=== PATIENT | male | born 1950 | race Caucasian/White ===

== ENCOUNTER 2021-06-17 16:23 | Inpatient (IN) | payer MEDICARE, BC ==
[~2021-06-17] VITALS: Ht 185.4 cm; Wt 156.4 kg
[2021-06-17 17:45] LABS: BASOPHILS % (AUTO) 1 % (0-1); EOSINOPHILS % (AUTO) 4 % (1-7); LYMPHOCYTES % (AUTO) 17 % (22-44); MEAN CORPUSCULAR HEMOGLOBIN 29.9 pg (27.5-34.5); MEAN CORPUSCULAR HGB CONC 33.2 g/dL (33.2-36.2); MEAN PLATELET VOLUME 8.4 fL (7.4-10.4); MONOCYTES % (AUTO) 9 % (2-9); NEUTROPHILS % (AUTO) 69 % (42-75); PLATELET COUNT 238 x10^3/uL (130-400); RED BLOOD COUNT 4.32 x10^6/uL (4.38-5.82)
[2021-06-17 17:52] LABS: ALANINE AMINOTRANSFERASE 22 U/L (12-78); ANION GAP 4 mmol/L (5-15); CALCIUM 11.4 mg/dL (8.5-10.1); CHLORIDE 113 mmol/L (98-107)
[2021-06-17 17:57] LABS: ALKALINE PHOSPHATASE 146 U/L (45-117); BILIRUBIN,TOTAL 0.3 mg/dL (0.2-1.0); CREATININE 1.57 mg/dL (0.7-1.3); TOTAL PROTEIN 7.2 g/dL (6.4-8.2)
[2021-06-17] MEDS ORDERED: SODIUM CHLORIDE FLUSH 10ML SYR IVF ONE (18:30)
[2021-06-17] MEDS ORDERED: VANCOMYCIN PER PHARMACY MC ONE (18:30)
[2021-06-17] MEDS ORDERED: PIPERACILLIN/TAZO 4.5 GM in SODIUM CHLORIDE 0.9% 100 ML IVPB ONE (18:30)
[2021-06-17] MEDS ORDERED: VANCOMYCIN 2,500 MG in SODIUM CHLORIDE 0.9% 500 ML IV ONE (19:30)
[2021-06-17] MEDS ORDERED: SODIUM CHLORIDE FLUSH 10ML SYR IVF PRN (19:30)
--- NOTE | 2021-06-17 20:27 | NUR ---
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 Addendum: 06/17/21 at 2112 by DG Admit orders changed to med/tele. Nursing hand-off report given to JUDD Etienne RN; questions answered
[2021-06-17 20:30] LABS: MICROSCOPIC AUTO
[2021-06-17] MEDS ORDERED: POLYETHYLENE GLYCOL 17 GM PACKET PO PRN (20:30)
[2021-06-17] MEDS ORDERED: hydrALAzine 20 MG/ML, 1ML IVPush PRN (20:30)
[2021-06-17] MEDS ORDERED: ACETAMINOPHEN 325 MG TABLET PO PRN (20:30)
[2021-06-17] MEDS ORDERED: ONDANSETRON 2MG/ML, 2ML IVPush PRN (20:30)
[2021-06-17] MEDS ORDERED: BISACODYL 10 MG SUPP PR PRN (20:30)
[2021-06-18 00:45] VITALS: BP 168/81
[2021-06-18] MEDS ORDERED: FUROSEMIDE 20 MG/2 ML ONE ×3 (00:52→17:20)
[2021-06-18] MEDS ORDERED: HEPARIN 5,000 UNITS/ML, 1ML ONE ×3 (00:52→17:20)
[2021-06-18] MEDS: HEPARIN 5,000 UNITS/ML, 1ML SQ SCH ×3 (00:56→17:51)
[2021-06-18] MEDS: FUROSEMIDE 20 MG/2 ML IV SCH ×3 (00:56→17:51)
[2021-06-18] MEDS: AMPICILLIN/SULBACTAM 3 GM in SODIUM CHLORIDE 0.9% 100 ML IV SCH ×4 (03:21→21:48)
[2021-06-18 05:12] LABS: BASOPHILS % (AUTO) 1 % (0-1); EOSINOPHILS % (AUTO) 4 % (1-7); LYMPHOCYTES % (AUTO) 22 % (22-44); MEAN CORPUSCULAR HEMOGLOBIN 29.5 pg (27.5-34.5); MEAN CORPUSCULAR HGB CONC 32.9 g/dL (33.2-36.2); MEAN PLATELET VOLUME 8.1 fL (7.4-10.4); MONOCYTES % (AUTO) 9 % (2-9); NEUTROPHILS % (AUTO) 65 % (42-75); PLATELET COUNT 214 x10^3/uL (130-400); RED BLOOD COUNT 4.27 x10^6/uL (4.38-5.82)
[2021-06-18 05:24] LABS: ANION GAP 3 mmol/L (5-15); CHLORIDE 113 mmol/L (98-107)
[2021-06-18] MEDS ORDERED: ACETAMINOPHEN 325 MG TABLET PO PRN (07:30)
[2021-06-18] MEDS ORDERED: MAGNESIUM SULFATE PMX 4GM/100M 100 ML IV ONE (07:30)
[2021-06-18] MEDS ORDERED: CARVEDILOL 6.25 MG TABLET PO SCH (07:30)
[2021-06-18 08:00] VITALS: BP 131/59
--- NOTE | 2021-06-18 08:42 | NUR ---
TASK RN NOTE: AM MEDS REQUESTED FROM PHARMACY.
[2021-06-18] MEDS ORDERED: SENNA/DOCUSATE TABLET ONE (08:48)
[2021-06-18] MEDS: SENNA/DOCUSATE TABLET PO SCH (09:00)
[2021-06-18 12:31] VITALS: BP 145/73
[2021-06-18] MEDS: CARVEDILOL 3.125 MG TABLET PO SCH (17:52)
[2021-06-18 18:32] VITALS: BP 132/59
[2021-06-18 20:29] VITALS: BP 146/85
[2021-06-19 00:32] VITALS: BP 156/76
[2021-06-19] MEDS: HEPARIN 5,000 UNITS/ML, 1ML SQ SCH ×3 (04:00→21:17)
[2021-06-19] MEDS: AMPICILLIN/SULBACTAM 3 GM in SODIUM CHLORIDE 0.9% 100 ML IV SCH ×4 (04:01→21:17)
[2021-06-19] MEDS: CARVEDILOL 3.125 MG TABLET PO SCH ×2 (05:41→18:32)
[2021-06-19 06:36] LABS: ANION GAP 5 mmol/L (5-15); CALCIUM 11.8 mg/dL (8.5-10.1); CHLORIDE 110 mmol/L (98-107)
[2021-06-19 06:42] LABS: CREATININE 1.61 mg/dL (0.7-1.3)
[2021-06-19 07:06] VITALS: BP 131/83
[2021-06-19] MEDS ORDERED: MAGNESIUM SULFATE PMX 4GM/100M 100 ML IV ONE (08:00)
[2021-06-19] MEDS: FUROSEMIDE 40 MG TABLET PO SCH ×2 (09:51→21:17)
[2021-06-19] MEDS: SENNA/DOCUSATE TABLET PO SCH (09:51)
[2021-06-19] MEDS: ALLOPURINOL 100 MG TABLET PO SCH (09:51)
[2021-06-19 12:00] VITALS: BP 144/92
[2021-06-19] MEDS ORDERED: ARTIFICIAL TEARS 15 DROP/ML BOTTLE RIGHTEYE PRN (12:30)
[2021-06-19 19:08] VITALS: BP 138/72
[2021-06-20 04:00] VITALS: BP 148/77
[2021-06-20] MEDS: AMPICILLIN/SULBACTAM 3 GM in SODIUM CHLORIDE 0.9% 100 ML IV SCH (04:03)
[2021-06-20] MEDS: HEPARIN 5,000 UNITS/ML, 1ML SQ SCH (04:04)
[2021-06-20] MEDS: CARVEDILOL 3.125 MG TABLET PO SCH (06:05)
[2021-06-20 06:33] VITALS: BP 125/79
[2021-06-20 08:55] LABS: ANION GAP 5 mmol/L (5-15); CALCIUM 12.7 mg/dL (8.5-10.1); CHLORIDE 110 mmol/L (98-107); CREATININE 1.77 mg/dL (0.7-1.3)
[2021-06-20] MEDS ORDERED: AMOXICILLIN/CLAV 875-125MG TABLET PO SCH (09:00)
[2021-06-20] MEDS: SENNA/DOCUSATE TABLET PO SCH (09:00)
[2021-06-20] MEDS: ALLOPURINOL 100 MG TABLET PO SCH (09:48)
[2021-06-20] MEDS: FUROSEMIDE 40 MG TABLET PO SCH (09:48)
[2021-06-20] MEDS ORDERED: AMOX1TAB12 PO (10:57)
[2021-06-20] MEDS ORDERED: FURO40TA6 PO (10:57)
[2021-06-20] MEDS ORDERED: ALLO100T30 PO (10:57)
[2021-06-20] MEDS ORDERED: HYDR-3342 PO (10:57)
[2021-06-20] MEDS ORDERED: CARV6.25 PEG (10:57)
[2021-06-20] MEDS ORDERED: SENN-211 PO (10:57)
[2021-06-20 14:30] VITALS: BP 169/78
[2021-06-20] MEDS ORDERED: COVID-19 VAC,AD26(JANSSEN)/PF 0.5ML IM-VACC ONE ×2 (14:30→15:30)
== END 2021-06-20 16:20 | disposition home health service (06) | DRG 603 ==
LOC: ED 19:25 → EDIP 19:31 → 4WST 06-18 19:49
PROVIDERS: ADMIT Family Medicine; ATTEND Internal Medicine
DX: L03.116 Cellulitis of left lower limb (principal); I13.0 Hypertensive heart and chronic kidney disease with heart failure and stage 1 through stage 4 chronic kidney disease, or unspecified chronic kidney disease; L97.929 Non-pressure chronic ulcer of unspecified part of left lower leg with unspecified severity; N17.9 Acute kidney failure, unspecified; Z68.42 Body mass index [BMI] 45.0-49.9, adult; D64.9 Anemia, unspecified; E21.0 Primary hyperparathyroidism; E66.01 Morbid (severe) obesity due to excess calories; E88.09 Other disorders of plasma-protein metabolism, not elsewhere classified; I16.0 Hypertensive urgency; I87.2 Venous insufficiency (chronic) (peripheral); M10.9 Gout, unspecified; E21.3 Hyperparathyroidism, unspecified; N18.30 Chronic kidney disease, stage 3 unspecified; I50.9 Heart failure, unspecified; H57.89 Other specified disorders of eye and adnexa; G47.33 Obstructive sleep apnea (adult) (pediatric); Z87.39 Personal history of other diseases of the musculoskeletal system and connective tissue
CPT/HCPCS: 36415; 71045; 80048; 80053; 81001; 82306; 82330; 83735; 83880; 83970; 84443; 84550; 84560; 85025; 87040; 87070; 87147; 87205; 91303; 93005; 93970; 94660; 96365; 99285; G0378; J0295; J1644; J2543; J1940; J3475